=== PATIENT | female | born 1950 | race Caucasian/White ===

== ENCOUNTER 2016-05-19 09:08 | Day surgery (SDC) | payer OTHER ==
[~2016-05-19] VITALS: Ht 144.8 cm; Wt 77.7 kg
[2016-05-19] MEDS ORDERED: LIDOCAINE 2% (SDV) 5 ML INJ ONE (10:43)
[2016-05-19] MEDS ORDERED: PROPOFOL 40 ML ONE (10:43)
[2016-05-19 10:53] VITALS: Ht 144.8 cm; Wt 77.7 kg
[2016-05-19] MEDS ORDERED: LOSARTAN (11:03)
[2016-05-19 11:05] VITALS: BP 158/67; PULSE 57; RESP 16
[2016-05-19] MEDS ORDERED: ASPI-535 PO (11:07)
[2016-05-19] MEDS ORDERED: METFORMIN PO (11:07)
[2016-05-19] MEDS ORDERED: GLIPIZIDE PO (11:07)
[2016-05-19] MEDS ORDERED: LOSARTAN PO (11:07)
[2016-05-19] MEDS ORDERED: AMLODIPINE PO (11:07)
[2016-05-19] MEDS ORDERED: INSULIN SUBCUTANE (11:07)
[2016-05-19 12:07] VITALS: BP 125/60; PULSE 53; RESP 16
--- NOTE | 2016-05-19 12:39 | GILP ---
DATE OF PROCEDURE: 05/19/2016 NAME OF PROCEDURES: Colonoscopy and polypectomy. SURGEON: Yong Garcia MD PREOPERATIVE DIAGNOSIS: Screening colonoscopy. POSTOPERATIVE DIAGNOSES: 1. Colonoscopy all the way to the cecum. 2. Cecal polyp was removed using the snare and electrocautery. 3. Diverticulosis of the colon. 4. Internal hemorrhoids. INDICATION FOR THE PROCEDURE: Ms. Rakel Gerber is a 66-year-old female patient who was scheduled fo r screening colonoscopy. The procedure and possible complications were well explained to the patient. The patient understood and consented to the procedure. DESCRIPTION OF PROCEDURE: Under the influence of anesthesia, the colonoscope was carefully introduc ed in the rectum and under direct vision, it was advanced all the way to the cecum. FINDINGS: The patient had a cecal polyp and it was removed using the snare and electrocautery. She was noted to have diverticulosis of the colon and internal hemorrhoids. She tolerated the procedure very well and there was no complication from the procedure. At the end of the procedure, she was awake with stable vital signs and she was discharged home to the care of h er family. IMPRESSION: 1. Colonoscopy all the way to the cecum. 2. Cecal polyp was removed using the snare and electrocautery. 3. Diverticulosis of the colon. 4. Internal hemorrhoids. PLAN: 1. Await histopathology report. 2. Next screening colonoscopy in 5 years. Dictated By: YONG PARKER/AIDEN Conf#: [id number] DID#: [id number] CC: YONG GARCIA MD;*EndCC*
== END 2016-05-19 12:11 | disposition home or self-care (01) ==
LOC: GIL 09:08
PROVIDERS: ATTEND Internal Medicine Gastroenterology
DX: Z12.11 Encounter for screening for malignant neoplasm of colon (principal); D12.0 Benign neoplasm of cecum; K57.90 Diverticulosis of intestine, part unspecified, without perforation or abscess without bleeding; K64.8 Other hemorrhoids; I10 Essential (primary) hypertension; E11.9 Type 2 diabetes mellitus without complications
CPT/HCPCS: 45378; 82962; 88305; Z7610